=== PATIENT | male | born 1990 | race Caucasian/White ===

== ENCOUNTER 2017-12-11 11:00 | Emergency (ER) | payer SELFPAY ==
[2017-12-11 11:38] VITALS: BP 142/81
--- NOTE | 2017-12-11 12:01 | UC ---
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 Recently he has been providing physical care to his grandfather assist him in and out of bed. Patient comes to urgent care today with chief complaint of pain in his chest wall on the right lower side radiating around into the back. Ribs are not tender areas are tender to touch. Denies shortness of breath abdominal pain nausea vomiting no epigastric pain no Masterson sign. - History of Current Complaint Chief Complaint: UCGeneralIllness Stated Complaint: PAIN IN RIB AREA Time Seen by Provider: 12/11/17 11:49 Hx Obtained From: Patient Onset/Duration: Sudden Onset, Lasting Days - 1, Still Present Pain Intensity: 8 Pain Scale Used: 0-10 Numeric Mechanism Of Injury: Other - Repeatitive Stress Injury Aggravating Factor(s): Movement, Other: - got no relief with tylenol Alleviating Factor(s): Nothing - Allergies/Home Medications Allergies/Adverse Reactions: Allergies Allergy/AdvReac Type Severity Reaction Status Date / Time No Known Allergies Allergy Verified 12/11/17 11:30 Home Medications: Home Medications Acetaminophen [Tylenol] 1,000 mg PO Q8HR PRN 12/11/17 [History Confirmed ] PMH/Surg Hx/FS Hx/Imm Hx Previously Healthy: Yes - Surgical History Surgical History: Yes Surgery Procedure, Year, and Place: hernia repair as child. wisdom teeth removal - Family History Known Family History: Positive: None - Social History Occupation: Employed Full-time Lives: With Family Alcohol Use: Weekly Alcohol Amount: 3 x per week Substance Use Type: Cocaine Substance Use Comment - Amount & Last Used: last used Thursday Smoking Status (MU): Heavy Every Day Tobacco Smoker Length of Time of Smoking/Using Tobacco: 1 PPD Have You Smoked in the Last Year: Yes Household Exposure Type: Cigarettes - Immunization History Most Recent Tetanus Shot: 2009 Review of Systems Constitutional: Negative Skin: Negative Eyes: Negative ENT: Negative Respiratory: Negative Cardiovascular: Chest Pain - right lower and lwer posterior chest wall pain Gastrointestinal: Negative Genitourinary: Negative Motor: Negative Neurovascular: Negative Musculoskeletal: Negative Neurological: Negative Psychological: Negative Is Patient Immunocompromised?: No All Other Systems Reviewed And Are Negative: Yes Physical Exam Triage Information Reviewed: Yes Appearance: Well-Appearing, Well-Nourished, Pain Distress - mild Vital Signs: Initial Vital Signs Temp 97.9 F 12/11/17 11:29 Pulse 50 12/11/17 11:29 Resp 18 12/11/17 11:29 BP 142/81 12/11/17 11:29 Pulse Ox 100 12/11/17 11:29 Vital Signs Reviewed: Yes Eye Exam: Normal Eyes: Positive: Conjunctiva Clear ENT Exam: Normal ENT: Positive: Normal ENT inspection, Hearing grossly normal, Pharynx normal. Negative: Trismus, Muffled voice, Hoarse voice Dental Exam: Normal Neck exam: Normal Neck: Positive: Supple, Nontender Respiratory Exam: Normal Respiratory: Positive: Chest non-tender, Lungs clear, Normal breath sounds, No respiratory distress, No accessory muscle use Cardiovascular Exam: Normal Cardiovascular: Positive: No Murmur, Pulses Normal, Brisk Capillary Refill, Bradycardia Abdominal Exam: Normal Abdomen Description: Positive: Nontender, No Organomegaly, Soft. Negative: CVA Tenderness (R), CVA Tenderness (L), Distended, Hepatomegaly, McBurney's Point Tenderness, Peritoneal Signs Bowel Sounds: Positive: Present Musculoskeletal Exam: Other Musculoskeletal: Positive: Strength Intact, ROM Intact, No Edema, Other: - right lower and right lower posterior chest wall tender to palpation Neurological Exam: Normal Neurological: Positive: Alert Psychological Exam: Normal Skin Exam: Normal Minor Trauma Course/Dx - Course Course Of Treatment: nicotine cesasation information, hypertension education and follow up, add ibuprofen and flexeril follow with pcp in 1 week --referrals made - Differential Dx/Diagnosis Provider Diagnoses: right lower chest wall pain, nicotine dependent, elevated blood pressure withut diagnosis of hypertension Discharge - Sign-Out/Discharge Documenting (check all that apply): Patient Departure - Discharge Plan Condition: Stable Disposition: HOME Prescriptions: Cyclobenzaprine TAB* [Flexeril 10 MG TAB*] 10 mg PO TID PRN #15 tab PRN Reason: muscle pain/tightness Ibuprofen TAB* [Motrin TAB* 800 MG] 800 mg PO ONCE #30 tab Patient Education Materials: Muscle Strain (ED), Hypertension (ED), Core Strengthening Exercises (GEN), Chest Wall Pain (ED) Forms: *Work Release Referrals: [facility] [Outside] - 1 Week [facility] [Outside] - 1 Week - Billing Disposition and Condition Condition: STABLE Disposition: Home
== END 2017-12-11 12:15 | disposition home or self-care (01) ==
LOC: UCEAST 11:00
DX: R07.89 Other chest pain (principal); F14.10 Cocaine abuse, uncomplicated; F17.210 Nicotine dependence, cigarettes, uncomplicated
CPT/HCPCS: 99212; G0463